=== PATIENT | female | born 2005 | race Caucasian/White ===

== ENCOUNTER 2023-06-25 12:37 | Emergency (ER) | payer OTHER ==
[~2023-06-25] VITALS: Ht 160 cm; Wt 77.3 kg
[2023-06-25 12:42] VITALS: BP 152/105; PULSE 109; RESP 18; TEMP 97.8; O2SAT 94
--- NOTE | 2023-06-25 12:48 | NUR ---
PROVIDER, RT, BABY WARMER AT BEDSIDE
--- NOTE | 2023-06-25 12:52 | NUR ---
DR COLBERT AT BEDSIDE
--- NOTE | 2023-06-25 12:53 | NUR ---
BABY IS MOVING ON ULTRASOUND
[2023-06-25 13:12] LABS: BASOPHILS % (AUTO) 0.3 % (0-1); EOSINOPHILS % (AUTO) 0.1 % (0-6); HEMATOCRIT 37.2 % (35.0-45.0); HEMOGLOBIN 12.3 g/dl (12.0-16.0); LYMPHOCYTES # (AUTO) 1.5 X10'3 (1.1-4.8); LYMPHOCYTES % (AUTO) 11.8 % (21-51); MEAN CORPUSCULAR VOLUME 90.8 FL (78-98); MEAN PLATELET VOLUME 9.5 FL (7.4-10.4); MONOCYTES # (AUTO) 0.8 X10'3 (0-0.9); MONOCYTES % (AUTO) 6.2 % (2-12); NEUTROPHILS # (AUTO) 10.1 X10'3 (1.8-7.7); NEUTROPHILS % (AUTO) 81.6 % (42-75); PLATELET COUNT 196 X10'3 (140-440); RED CELL DISTRIBUTION WIDTH 14.7 % (11.5-14.5); WHITE BLOOD COUNT 12.3 X10'3 (4.5-11.0)
[2023-06-25 13:27] LABS: ALANINE AMINOTRANSFERASE 15 U/L (12-78); ALBUMIN 2.3 G/DL (3.4-5.0); ALBUMIN/GLOBULIN RATIO 0.6 (1.1-1.5); ALKALINE PHOSPHATASE 185 IU/L (20-180); ANION GAP 10 (8-16); ASPARTATE AMINO TRANSFERASE 18 U/L (10-37); BILIRUBIN,TOTAL 0.3 MG/DL (0.1-1.0); BLOOD UREA NITROGEN 6 MG/DL (7-18); BUN/CREATININE RATIO 11.5 (10.0-20.0); CALCIUM 8.9 MG/DL (8.5-10.1); CHLORIDE 102 MMOL/L (99-107); CREATININE 0.52 MG/DL (0.40-0.90); GLUCOSE 96 MG/DL (70-104); POTASSIUM 3.3 MMOL/L (3.5-5.1); SODIUM 135 MMOL/L (135-145); TOTAL PROTEIN 6.4 G/DL (6.4-8.2); eCRCL 144 ML/MIN; eGFR > 90 ML/MIN
== END 2023-06-25 12:56 | disposition short-term general hospital (02) ==
LOC: ER 12:38
DX: O47.00 False labor before 37 completed weeks of gestation, unspecified trimester (principal)
CPT/HCPCS: 36415; 80053; 85025; 99285